=== PATIENT | male | born 1975 | race Two or more races ===

== ENCOUNTER 2017-01-04 21:47 | Emergency (ER) | payer SELFPAY ==
[2017-01-04] MEDS ORDERED: ACETAMINOPHEN 325 MG TABLET PO ONE (22:42)
--- NOTE | 2017-01-04 22:45 | ER Document Report ---
ED Medical Screen (RME) - General Chief Complaint: Headache Stated Complaint: HEADACHE Time Seen by Provider: 01/04/17 22:42 Mode of Arrival: Ambulatory Information source: Patient Notes: 41-year-old male presents to ED for headache for the last hour and a half as well as dizziness. He states he does not have a history of headaches but he does have a history of seizures and a blood clot on the brain. He did have surgery for the blood clot. And he is on Dilantin for the seizures. I have greeted and performed a rapid initial assessment of this patient. A comprehensive ED assessment and evaluation of the patient, analysis of test results and completion of medical decision making process will be conducted by an additional ED providers. TRAVEL OUTSIDE OF THE [place] IN LAST 30 DAYS: No - HPI Onset: This evening Quality of pain: Achy Associated Symptoms: Dizzy/lightheaded, Headache - He said dizzy and headache Past Medical History Renal/ Medical History: Denies: Hx Peritoneal Dialysis Physical Exam - Vital signs Vitals: Temp Pulse Resp BP Pulse Ox 97.7 F 64 20 132/87 H 98 01/04/17 21:59 01/04/17 21:59 01/04/17 21:59 01/04/17 21:59 01/04/17 21:59 Course - Vital Signs Vital signs: Temp Pulse Resp BP Pulse Ox 97.7 F 64 20 132/87 H 98 01/04/17 21:59 01/04/17 21:59 01/04/17 21:59 01/04/17 21:59 01/04/17 21:59
--- NOTE | 2017-01-04 23:27 | RADIOLOGY REPORT (SQ) ---
EXAM DESCRIPTION: CT HEAD WITHOUT COMPLETED DATE/TIME: 01/04/2017 11:07 pm REASON FOR STUDY: headache hx of blood clot COMPARISON: None. TECHNIQUE: Axial images acquired through the brain without intravenous contrast. Images reviewed wi th bone, brain and subdural windows. Images stored on PACS. All CT scanners at this facility use dose modulation, iterative reconstruction, and/or weight based d osing when appropriate to reduce radiation dose to as low as reasonably achievable (ALARA). [facility]: Dose Right [facility]: CareDose [facility]: Dose Right [facility]: Teradose 4D [facility]: [employer] RADIATION DOSE: Up-to-date CT equipment and radiation dose reduction techniques were employed. CTDIv ol: 55.3 mGy. DLP: 996 mGy-cm. mGy. LIMITATIONS: None. FINDINGS: VENTRICLES: Normal size and contour. 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 Metallic foreign bodies present. No mass effect. No midline shift. No acute hemorrhage. CEREBELLUM: No masses. No hemorrhage. No alteration of density. No evidence for acute infarction. EXTRAAXIAL SPACES: No fluid collections. No masses. ORBITS AND GLOBE: No intra- or extraconal masses. Normal contour of globe without masses. CALVARIUM: No fracture. PARANASAL SINUSES: No fluid or mucosal thickening. SOFT TISSUES: No mass or hematoma. OTHER: No other significant finding. IMPRESSION: Remote postsurgical and posttraumatic changes left hemisphere. No acute intracranial process. TECHNICAL DOCUMENTATION: JOB ID: [id number] Quality ID # [id number]: Final reports with documentation of one or more dose reduction techniques (e.g., Au tomated exposure control, adjustment of the mA and/or kV according to patient size, use of iterative reconstruction technique) 2010 [employer] All Rights Reserved
[2017-01-05] MEDS ORDERED: ACETAMINOPHEN 325 MG TABLET PO ONE (04:11)
--- NOTE | 2017-01-05 04:12 | ER Document Report ---
ED General - General Chief Complaint: Headache Stated Complaint: HEADACHE Time Seen by Provider: 01/04/17 22:42 Mode of Arrival: Ambulatory Information source: Patient TRAVEL OUTSIDE OF THE [place] IN LAST 30 DAYS: No - HPI Notes: Patient is a pleasant 41-year-old male presents with report of history of intracranial bleed in 2001 with seizures that are controlled with nightly 300 mg Dilantin that he is been compliant with. The patient reports that he was up at [facility] at a high elevation recently, and just got through driving back 3 days with some sleep deprivation. The patient reported a headache this evening and comes in for evaluation. Patient denies any fever or neck stiffness or head injury or vision change. The patient reports no numbness or paresthesia or incontinence. No recent seizure activity. Past Medical History - General Information source: Patient - Social History Smoking Status: Never Smoker Frequency of alcohol use: None Drug Abuse: None Lives with: Family Family History: Reviewed & Not Pertinent Patient has suicidal ideation: No Patient has homicidal ideation: No Renal/ Medical History: Denies: Hx Peritoneal Dialysis Review of Systems - Review of Systems Notes: REVIEW OF SYSTEMS: CONSTITUTIONAL : Denies fever, chills, or sweats. Denies recent illness. EENT: Denies eye, ear, throat, or mouth pain or symptoms. Denies nasal or sinus congestion or discharge. Denies throat, tongue, or mouth swelling or difficulty swallowing. CARDIOVASCULAR: Denies chest pain. Denies palpitations or racing or irregular heart beat. Denies ankle edema. RESPIRATORY: Denies cough, cold, or chest congestion. Denies shortness of breath, difficulty breathing, or wheezing. GASTROINTESTINAL: Denies abdominal pain or distention. Denies nausea, vomiting , or diarrhea. Denies blood in vomitus, stools, or per rectum. Denies black, tarry stools. Denies constipation. GENITOURINARY: Denies difficulty urinating, painful urination, burning, frequency, blood in urine, or discharge. MUSCULOSKELETAL: Denies back or neck pain or stiffness. Denies joint pain or swelling. SKIN: Denies rash, lesions or sores. HEMATOLOGIC : Denies easy bruising or bleeding. LYMPHATIC: Denies swollen, enlarged glands. NEUROLOGICAL: Denies confusion or altered mental status. Denies passing out or loss of consciousness. Denies dizziness or lightheadedness. Denies weakness or paralysis or loss of use of either side. Denies problems with gait or speech. Denies sensory loss, numbness, or tingling. Denies seizures. PSYCHIATRIC: Denies anxiety or stress. Denies depression, suicidal ideation, or homicidal ideation. ALL OTHER SYSTEMS REVIEWED AND NEGATIVE. Dictation was performed using [employer] voice recognition software Physical Exam - Vital signs Vitals: Temp Pulse Resp BP Pulse Ox 97.7 F 64 20 132/87 H 98 01/04/17 21:59 01/04/17 21:59 01/04/17 21:59 01/04/17 21:59 01/04/17 21:59 - Notes Notes: PHYSICAL EXAMINATION: GENERAL: Well-appearing, well-nourished and in no acute distress. HEAD: Atraumatic, normocephalic. EYES: Pupils equal round and reactive to light, extraocular movements intact, sclera anicteric, conjunctiva are normal. ENT: Nares patent, oropharynx clear without exudates. Moist mucous membranes. NECK: Normal range of motion, supple without lymphadenopathy LUNGS: Breath sounds clear to auscultation bilaterally and equal. No wheezes rales or rhonchi. HEART: Regular rate and rhythm without murmurs ABDOMEN: Soft, nontender, nondistended abdomen. No guarding, no rebound. No masses appreciated. Musculoskeletal: Normal range of motion, no pitting or edema. No cyanosis. NEUROLOGICAL: Cranial nerves grossly intact. Normal speech, normal gait. Normal sensory, motor exams. No cerebellar ataxia. Patient is alert and oriented 3. PSYCH: Normal mood, normal affect. SKIN: Warm, Dry, normal turgor, no rashes or lesions noted. Normal Course - Re-evaluation Re-evalutation: 01/05/17 04:10 Patient was given Tylenol with improvement and resolution of his headache. No evidence for acute intracranial injury or Dilantin toxicity. Most likely headache is related to sleep deprivation. 01/05/17 05:46 - Vital Signs Vital signs: Temp Pulse Resp BP Pulse Ox 97.7 F 64 20 132/87 H 98 01/04/17 21:59 01/04/17 21:59 01/04/17 21:59 01/04/17 21:59 01/04/17 21:59 Discharge - Discharge Clinical Impression: Headache Qualifiers: Headache type: other headache syndrome Qualified Code(s): G44.89 - Other headache syndrome Condition: Stable Disposition: HOME, SELF-CARE Instructions: Headache ([facility]) Additional Instructions: Drink plenty fluids. Return to the ED in case of numbness, weakness or severe headache or any fever.
[2017-01-05 06:29] VITALS: BP 131/81
== END 2017-01-05 06:55 | disposition home or self-care (01) ==
LOC: ER 21:47
DX: G44.89 Other headache syndrome (principal); R56.9 Unspecified convulsions
CPT/HCPCS: 36415; 70450; 80185; 99284